=== PATIENT | male | born 1945 | race Asian ===

== ENCOUNTER → 2016-10-21 | Day surgery (SDC) | payer BC, MEDICARE ==
[~2016-10-21] VITALS: Ht 175.3 cm; Wt 83.9 kg
[2016-10-21] VITALS (10 sets, daily range): BP systolic 106–125; BP diastolic 63–86
[~2016-10-21] MED LIST: Akten 3.5% 1ml Btl RIGHT EYE SCH; BSS 15ml BTL ONE; BSS 500ml btl ONE; CRESTOR10 M2 ORAL; DIOVAN320 MG ORAL; Dexamethasone 4mg/ml vial ONE; Diclofenac Sod 0.1% Op Soln RIGHT EYE SCH; EPINEPHrine 1mg/1ml Amp ONE; GLIMEPIRIDE4 MG ORAL; Gatifloxacin Opth Solution 0.5% RIGHT EYE SCH; LR 1000ml ONE; Lidocaine 1% MPF 10mg/ml 5ml ONE; METFORMIN HCL1000 M1 ORAL; Midazolam 2mg/2ml Inj ONE; NEXIUM40 MG ORAL; NS Irrig 1000ml ONE; Phenylephrine 2.5% Op Soln RIGHT EYE SCH; Povidone-Iodine 5% opth solution ONE; Sodium Hyaluronate 14 mg/ml 0.85ml ONE; Sterile Water Irrig 1000ml IRRIG ONE; Tobradex Opth Susp 2.5ml RIGHT EYE SCH; Tropicamide 1% Opth Soln RIGHT EYE SCH; ZETIA10 MG ORAL; fentaNYL 100 mcg/2 mL IV ONE
--- NOTE | 2016-10-21 07:39 | Pre-Procedure Note/Attestation ---
Pre-Procedure Note/Attestation Complete Prior to Procedure Planned Procedure: right Procedure Narrative: cataract extraction with implant right eye Indications for Procedure Pre-Operative Diagnosis: cataract right eye Attestation I attest that I discussed the nature of the procedure; its benefits; risks and complications; and alternatives (and the risks and benefits of such alternatives ), prior to the procedure, with the patient (or the patient's legal sales representative publications). I attest that, if there was a reasonable possibility of needing a blood transfusion, the patient (or the patient's legal sales representative publications) was given the [facility] Services standardized written summary, pursuant to the [place] Blood Safety Act ([place] Health and Safety Code # 1645, as amended). I attest that I re-evaluated the patient just prior to the surgery and that there has been no change in the patient's H&P, except as documented below: SYED PIERRE Oct 21, 2016 07:39
--- NOTE | 2016-10-21 10:33 | Anethesia Preoperative Eval ---
Anesthesia Pre-op PMH/ROS General Date of Evaluation: Oct 21, 2016 Time of Evaluation: 10:31 Anesthesiologist: miguel ASA Score: ASA 2 Mallampati Score Class I : Soft palate, uvula, fauces, pillars visible Class II: Soft palate, uvula, fauces visible Class III: Soft palate, base of uvula visible Class IV: Only hard plate visible Mallampati Classification: Class II Surgeon: sofie Diagnosis: cataract Surgical Procedure: cataract extraction with IOL right eye Anesthesia History: none Family History: no anesthesia problems Allergies: Coded Allergies: No Known Allergies (Unverified , 10/20/16) Medications: see eMAR Past Medical History Cardiovascular: Reports: CAD, HTN, other - pacemaker/v paced Pulmonary: Denies: COPD, ROMY, asthma, other Gastrointestinal/Genitourinary: Denies: CRI, ESRD, GERD, other Neurologic/Psychiatric: Denies: CVA, TIA, dementia, depression/anxiety, other Endocrine: Reports: DM HEENT: Reports: cataract (R) PSxH Narrative: Cardiac stents, pacemaker placement Anesthesia Pre-op Phys. Exam Physician Exam Last Vital Signs Date Time Temp Pulse Resp B/P Pulse Ox O2 Delivery O2 Flow Rate FiO2 10/21/16 09:56 97.7 59 18 125/69 97 Room Air Constitutional: NAD Neurologic: CN 2-12 intact Cardiovascular: RRR, other - v paced Respiratory: CTA Gastrointestinal: S/NT/ND Airway Exam Mallampati Score: Class II MO: full ROM: full Dentures: no lower, no upper Anesthesia Pre-op A/P Studies Pre-op Studies: EKG - V paced Risk Assessment & Plan Plan: mac Status Change Before Surgery: No Pre-Antibiotics Drug: none ALLIE SCHMITT GIVER Oct 21, 2016 10:33
--- NOTE | 2016-10-21 10:42 | Brief Operative Note ---
Immediate Post Operative Note Operative Note Pre-op Diagnosis: cataract right eye Procedure: phacoemulsification of cataract with implant right eye Post-op Diagnosis: same as pre-op Surgeon: syed carrizales Weekend Receptionist: none Anesthesiologist: harman rivera Anesthesia: MAC Specimen: none Complications: none Condition: stable Estimated Blood Loss: none Drains: none Implant(s) used?: Yes SYED CARRIZALES Oct 21, 2016 10:42
--- NOTE | 2016-10-21 10:49 | Immediate Post-Op Evaluation ---
Immediate Post-Op Evalulation Immediate Post-Op Evalulation Procedure: right eye cataract extraction with IOL Date of Evaluation: Oct 21, 2016 Time of Evaluation: 10:40 IV Fluids: 200 Blood Pressure Systolic: 116 Blood Pressure Diastolic: 82 Pulse Rate: 63 Respiratory Rate: 14 O2 Sat by Pulse Oximetry: 98 Temperature (Fahrenheit): 97.3 Nausea: No Complications none Patient Status: awake, reacts Hydration Status: adequate Drug: none ALLIE SCHMITT CRNA Oct 21, 2016 10:49
--- NOTE | 2016-10-21 10:51 | 48 Hour Post Anesthesia Eval ---
Post Anesthesia Evaluation Procedure: right eye cataract extraction with IOL Date of Evaluation: Oct 21, 2016 Time of Evaluation: 10:51 Blood Pressure Systolic: 110 0: 76 Pulse Rate: 62 Respiratory Rate: 15 O2 Sat by Pulse Oximetry: 99 Airway: patent Nausea: No Vomiting: No Hydration Status: adequate Mental Status/LOC: patient returned to baseline Post-Anesthesia Complications: none Follow-up care needed: N/A ALLIE SCHMITT CRNA Oct 21, 2016 10:51
--- NOTE | 2016-10-21 16:08 | Operative Note - Dictated ---
DATE OF OPERATION: 10/21/2016 PREOPERATIVE DIAGNOSIS: Cataract, right eye. POSTOPERATIVE DIAGNOSIS: Cataract, right eye. PROCEDURE: Phacoemulsification of the cataract, right eye, with placement of posterior chamber intraocular lens. SURGEON: Angelo Nevarez M.D. ([facility] [place] TORTILLA MAKER: None. ANESTHESIA: MAC/topical. ANESTHESIOLOGIST: Nelia Morales C.R.N.A. INDICATION FOR PROCEDURE: Poor vision, right eye. DESCRIPTION OF FINDINGS: Nuclear sclerotic cataract, right eye. DESCRIPTION OF PROCEDURE: The patient received a topical anesthetic block consisting of 3.5% Akten eye drops. The eye was then prepped and draped in the usual manner. A lid speculum was placed and an operating Zeiss microscope was positioned. A temporal corneal groove was then made with the tai blade. A SuperSharp blade made a stab incision at the 12 o'clock position. A 0.1 mL of 1% nonpreserved intracameral lidocaine was injected. Healon was instilled into the anterior chamber and a 2.5/2.8 mm trapezoidal tai blade was used to complete the temporal corneal wound. A cystotome was used to create an anterior capsular flap. Utrata forceps were used to complete the capsulorrhexis. BSS on a cannula was used to hydrodissect the nucleus. The lens nucleus was phacoemulsified in a phaco-fracture technique. Remaining cortical material was removed with the I/A and the posterior capsule polished with the I/A on Cap vac. Healon was reinstilled in the capsular bag and anterior chamber, and an Perrin foldable one-piece posterior chamber intraocular lens, model ZCB00, power 12.0 diopter, serial #[id number] was placed in the injector. The lens was put into the capsular bag. The I/A tip was used to remove the Healon and position the lens. The wound edge was hydrated with BSS and a blunt-tipped cannula. The wound was checked and found to be watertight. The lid speculum was removed, and a drop of TobraDex and Zymaxid was placed. A clear plastic shield was taped over the eye. The patient tolerated the procedure well and left the operating room in good condition. Angelo Nevarez M.D. ([facility]) DR: GAURAV JOB#: [id number] CC: Jorge Jean Baptiste M.D.
== END | disposition home or self-care (01) ==
LOC: SUR 08:15
DX: H25.11 Age-related nuclear cataract, right eye (principal); I25.10 Atherosclerotic heart disease of native coronary artery without angina pectoris; I11.0 Hypertensive heart disease with heart failure; I50.22 Chronic systolic (congestive) heart failure; Z95.5 Presence of coronary angioplasty implant and graft; E11.9 Type 2 diabetes mellitus without complications; Z79.84 Long term (current) use of oral hypoglycemic drugs; E78.00 Pure hypercholesterolemia, unspecified; G47.33 Obstructive sleep apnea (adult) (pediatric); E66.3 Overweight; M16.12 Unilateral primary osteoarthritis, left hip; K21.9 Gastro-esophageal reflux disease without esophagitis; Z87.891 Personal history of nicotine dependence; Z95.0 Presence of cardiac pacemaker; Z79.82 Long term (current) use of aspirin
CPT/HCPCS: 82962; 94003; 94150; J2250

== ENCOUNTER → 2016-12-02 | Day surgery (SDC) | payer BC, MEDICARE ==
[~2016-12-02] VITALS: Ht 175.3 cm; Wt 81.6 kg
[2016-12-02] VITALS (8 sets, daily range): BP systolic 105–121; BP diastolic 62–79
[~2016-12-02] MED LIST changes: +Akten 3.5% 1ml Btl ONE; -Akten 3.5% 1ml Btl RIGHT EYE SCH; +Diclofenac Sod 0.1% Op Soln ONE; -Diclofenac Sod 0.1% Op Soln RIGHT EYE SCH; +Gatifloxacin Opth Solution 0.5% ONE; -Gatifloxacin Opth Solution 0.5% RIGHT EYE SCH; -NS Irrig 1000ml ONE; +Phenylephrine 2.5% Op Soln ONE; -Phenylephrine 2.5% Op Soln RIGHT EYE SCH; -Sterile Water Irrig 1000ml IRRIG ONE; +Tobradex Opth Susp 2.5ml ONE; -Tobradex Opth Susp 2.5ml RIGHT EYE SCH; +Tropicamide 1% Opth Soln ONE; -Tropicamide 1% Opth Soln RIGHT EYE SCH
[2016-12-02] MEDS: Akten 3.5% 1ml Btl LEFT EYE SCH ×3 (07:22→07:36)
[2016-12-02] MEDS: Phenylephrine 2.5% Op Soln LEFT EYE SCH ×3 (07:24→07:37)
[2016-12-02] MEDS: Diclofenac Sod 0.1% Op Soln LEFT EYE SCH ×3 (07:25→07:37)
[2016-12-02] MEDS: Gatifloxacin Opth Solution 0.5% LEFT EYE SCH ×3 (07:25→07:36)
[2016-12-02] MEDS: Tobradex Opth Susp 2.5ml LEFT EYE SCH ×3 (07:25→07:37)
[2016-12-02] MEDS: Tropicamide 1% Opth Soln LEFT EYE SCH ×3 (07:25→07:37)
--- NOTE | 2016-12-02 07:34 | Pre-Procedure Note/Attestation ---
Pre-Procedure Note/Attestation Complete Prior to Procedure Planned Procedure: left Procedure Narrative: cataract extraction with implant left eye Indications for Procedure Pre-Operative Diagnosis: cataract left eye Attestation I attest that I discussed the nature of the procedure; its benefits; risks and complications; and alternatives (and the risks and benefits of such alternatives ), prior to the procedure, with the patient (or the patient's legal ict sales representative). I attest that, if there was a reasonable possibility of needing a blood transfusion, the patient (or the patient's legal ict sales representative) was given the [facility] standardized written summary, pursuant to the [place] Blood Safety Act ([place] Health and Safety Code # 1645, as amended). I attest that I re-evaluated the patient just prior to the surgery and that there has been no change in the patient's H&P, except as documented below: SYED PIERRE Dec 02, 2016 07:34
--- NOTE | 2016-12-02 08:40 | Anethesia Preoperative Eval ---
Anesthesia Pre-op PMH/ROS General Date of Evaluation: Dec 02, 2016 Time of Evaluation: 08:20 Anesthesiologist: miguel ASA Score: ASA 3 Mallampati Score Class I : Soft palate, uvula, fauces, pillars visible Class II: Soft palate, uvula, fauces visible Class III: Soft palate, base of uvula visible Class IV: Only hard plate visible Mallampati Classification: Class III Surgeon: sofie Diagnosis: cataract Surgical Procedure: cataract extraction Anesthesia History: none Family History: no anesthesia problems Allergies: Coded Allergies: No Known Allergies (Unverified , 10/20/16) Medications: see eMAR Past Medical History Cardiovascular: Reports: CAD, HTN, arrhythmia, other - pacemaker Pulmonary: Denies: COPD, ROMY, asthma, other Gastrointestinal/Genitourinary: Denies: CRI, ESRD, GERD, other Neurologic/Psychiatric: Denies: CVA, TIA, dementia, depression/anxiety, other Endocrine: Reports: DM HEENT: Reports: cataract (L) Hematology/Immune: Denies: DVT, anemia, bleeding disorder, other Musculoskeletal/Integumentary: Denies: DDD, DJD, OA, RA, edema, other PSxH Narrative: pacemaker/ s/pstents Anesthesia Pre-op Phys. Exam Physician Exam Constitutional: NAD Neurologic: CN 2-12 intact Cardiovascular: RRR, other - v paced Respiratory: CTA Gastrointestinal: S/NT/ND Airway Exam Mallampati Classification 2 Mallampati Score: Class II MO: full ROM: full Dentures: lower, upper Anesthesia Pre-op A/P Studies Pre-op Studies: EKG - v paced 60 Risk Assessment & Plan Plan: mac Status Change Before Surgery: No Pre-Antibiotics Drug: none ALLIE SCHMITT STEP FINISHER Dec 02, 2016 08:40
--- NOTE | 2016-12-02 08:50 | Brief Operative Note ---
Immediate Post Operative Note Operative Note Pre-op Diagnosis: cataract left eye Procedure: phacoemulsification of cataract with implant left eye Post-op Diagnosis: same as pre-op Surgeon: syed carrizales Web Operations Lead: none Anesthesiologist: harman mohamud crna Anesthesia: MAC Specimen: none Complications: none Condition: stable Estimated Blood Loss: none Drains: none Implant(s) used?: Yes SYED CARRIZALES Dec 02, 2016 08:50
--- NOTE | 2016-12-02 08:51 | Immediate Post-Op Evaluation ---
Immediate Post-Op Evalulation Immediate Post-Op Evalulation Procedure: Cataract extraction left eye Date of Evaluation: Dec 02, 2016 Time of Evaluation: 08:50 IV Fluids: 300 Blood Pressure Systolic: 121 Blood Pressure Diastolic: 70 Pulse Rate: 60 Respiratory Rate: 14 O2 Sat by Pulse Oximetry: 96 Temperature (Fahrenheit): 98.5 Nausea: No Vomiting: No Complications none Patient Status: awake, reacts, patent Hydration Status: adequate Drug: none TARRILLIONTIFFANIEALLIE AUTOMOBILE UPHOLSTERY TRIM INSTALLER Dec 02, 2016 08:51
--- NOTE | 2016-12-02 09:19 | 48 Hour Post Anesthesia Eval ---
Post Anesthesia Evaluation Procedure: Cataract extraction left eye Date of Evaluation: Dec 02, 2016 Time of Evaluation: 09:19 Blood Pressure Systolic: 115 0: 77 Pulse Rate: 75 O2 Sat by Pulse Oximetry: 98 Airway: patent Nausea: No Vomiting: No Hydration Status: adequate Mental Status/LOC: patient returned to baseline Post-Anesthesia Complications: none Follow-up care needed: N/A ALLIE SCHMITT CRNA Dec 02, 2016 09:19
--- NOTE | 2016-12-02 12:48 | Operative Note - Dictated ---
DATE OF OPERATION: 12/02/2016 PREOPERATIVE DIAGNOSIS: Cataract, left eye. POSTOPERATIVE DIAGNOSIS: Cataract, left eye. PROCEDURE: Phacoemulsification of cataract, left eye with placement of posterior chamber intraocular lens. SURGEON: Angelo Nevarez M.D. ADULT EDUCATOR: None. ANESTHESIA: MAC/topical. ANESTHESIOLOGIST: Nelia Morales CRNA. INDICATION FOR PROCEDURE: Poor vision, left eye. DESCRIPTION OF FINDINGS: Nuclear sclerotic cataract, left eye. DESCRIPTION OF PROCEDURE: The patient received a topical anesthetic block consisting of 3.5% Akten eyedrops. The eye was then prepped and draped in usual manner. A lid speculum was placed. An operating Zeiss microscope was positioned. A temporal corneal groove was made with the tai blade. A SuperSharp blade made a stab incision at the 6 o'clock position. A 0.1 mL of 1% nonpreserved intracameral lidocaine was injected. Healon was instilled into the anterior chamber and a 2.5/2.8 mm trapezoidal tai blade was used to complete the temporal corneal wound. A cystotome was used to create an anterior capsular flap. Utrata forceps were used to complete the capsulorrhexis. BSS on a cannula was used to hydrodissect the nucleus. The lens nucleus phacoemulsified in a phaco-fracture technique. Remaining cortical material was removed with the I/A and the posterior capsule was polished with the I/A on Cap vac. Healon was instilled in a capsular bag and anterior chamber, and an Perrin foldable one-piece posterior intraocular lens, model ZCB00, power 14.0 diopters, serial #[id number], was placed in the injector. The lens was put in the capsular bag. The I/A tip was used to remove the Healon and position the lens. The wound edge was hydrated with BSS and a blunt-tipped cannula. The wound was checked and found to be watertight. The lid speculum was removed and a drop of TobraDex and Zymaxid was placed. A clear plastic shield was taped over the eye. The patient tolerated the procedure well and left the operating room in good condition. Angelo Nevarez M.D. ([facility] [place]) DR: Tamika JOB#: [id number] CC: Jorge Jean Baptiste M.D.
== END | disposition home or self-care (01) ==
LOC: SUR 06:12
DX: H25.12 Age-related nuclear cataract, left eye (principal); E11.9 Type 2 diabetes mellitus without complications; Z79.84 Long term (current) use of oral hypoglycemic drugs; I25.10 Atherosclerotic heart disease of native coronary artery without angina pectoris; Z95.5 Presence of coronary angioplasty implant and graft; I10 Essential (primary) hypertension; K21.9 Gastro-esophageal reflux disease without esophagitis; N52.9 Male erectile dysfunction, unspecified; M10.9 Gout, unspecified; E78.00 Pure hypercholesterolemia, unspecified; G47.33 Obstructive sleep apnea (adult) (pediatric); M16.12 Unilateral primary osteoarthritis, left hip; I51.7 Cardiomegaly; I50.22 Chronic systolic (congestive) heart failure; E66.3 Overweight; Z95.0 Presence of cardiac pacemaker; Z87.891 Personal history of nicotine dependence; Z79.82 Long term (current) use of aspirin
CPT/HCPCS: 66984; 82962; J0171; J1100; J2250; J3010; J7120; V2632; 94003; 94150